=== PATIENT | female | born 1960 | race Caucasian/White ===

== ENCOUNTER 2020-05-25 14:00 | Emergency (ER) | payer MEDICARE, OTHER ==
[~2020-05-25 14:00] MED LIST: ADVAIR 100-501 EACH INH; ALDACTONE100 MG PO; ALPRAZOLAM0.5 MG PO; BACTROBAN OINT22 GM EXT; CELEXA20 MG PO; DECADRON4 MG PO; EFUDEX 5% CREAM40 GM EXT; K-TAB ER20 MEQ PO; LASIX40 MG PO; LOPERAMIDE2 MG PO; MAALOX MAXIMUM355 ML PO; NADOLOL20 MG PO; NEURONTIN 300300 MG PO; NORVASC2.5 MG PO; PROTONIX40 MG PO; TAMIFLU 75 MG C75 MG PO; XIFAXAN550 MG PO; ZITHROMAX250 MG PO; ZOCOR10 MG PO; ZOFRAN4 MG PO
[2020-05-25 15:04] LABS: HEMOGLOBIN 12.3 gm/dl (12.3-15.3); RED BLOOD COUNT 3.94 M/UL (4.00-5.10); WHITE BLOOD COUNT 6.2 K/UL (4.5-11.0)
[2020-05-25 15:31] LABS: BUN/CREATININE RATIO 8 (0-10)
[2020-05-25] MEDS ORDERED: CEFDINIR300 MG PO (19:52)
[2020-05-25] MEDS ORDERED: DOXYCYCLINE HY100 MG PO (19:52)
== END 2020-05-25 20:02 | disposition home or self-care (01) ==
LOC: ER1 14:00
PROVIDERS: Physician Assistant
DX: J18.9 Pneumonia, unspecified organism (principal); R07.89 Other chest pain; K76.9 Liver disease, unspecified; N39.0 Urinary tract infection, site not specified; R79.1 Abnormal coagulation profile; K74.60 Unspecified cirrhosis of liver; R16.1 Splenomegaly, not elsewhere classified; I10 Essential (primary) hypertension; I25.10 Atherosclerotic heart disease of native coronary artery without angina pectoris; Z98.890 Other specified postprocedural states; Z85.05 Personal history of malignant neoplasm of liver; Z87.19 Personal history of other diseases of the digestive system; Z86.16 Personal history of COVID-19
CPT/HCPCS: 80053; 81001; 82550; 82553; 83874; 84484; 85025; 93005; 99285; Q9967

== ENCOUNTER 2021-06-14 12:16 | Inpatient (IN) | payer MEDICARE, OTHER ==
[~2021-06-14] VITALS: Ht 162.6 cm; Wt 78.9 kg
[~2021-06-14 12:16] MED LIST changes: -ALDACTONE100 MG PO; -ALPRAZOLAM0.5 MG PO; +CEFDINIR300 MG PO; -CELEXA20 MG PO; +DOXYCYCLINE HY100 MG PO; -K-TAB ER20 MEQ PO; -LASIX40 MG PO; -NADOLOL20 MG PO; -NEURONTIN 300300 MG PO; -XIFAXAN550 MG PO
[2021-06-14 13:03] LABS: HEMOGLOBIN 12.2 gm/dl (12.3-15.3); RED BLOOD COUNT 3.89 M/UL (4.00-5.10); WHITE BLOOD COUNT 5.1 K/UL (4.5-11.0)
[2021-06-14 13:37] LABS: BUN/CREATININE RATIO 11 (0-10)
[2021-06-14] MEDS ORDERED: HYDROCODON-ACE1 EAC4 PO (14:14)
[2021-06-14] MEDS ORDERED: LASIX40 MG PO (14:39)
[2021-06-14] MEDS ORDERED: NEURONTIN300 MG PO (14:40)
[2021-06-14] MEDS ORDERED: CELEXA40 MG PO (14:41)
[2021-06-14] MEDS ORDERED: NADOLOL20 MG PO (14:46)
[2021-06-14] MEDS ORDERED: ALDACTONE100 MG PO (14:47)
[2021-06-14] MEDS ORDERED: PROPRANOLOL HCL10 MG PO (18:37)
[2021-06-14] MEDS ORDERED: ELIQUIS5 MG PO (18:37)
[2021-06-14] MEDS ORDERED: DILTIAZEM 24HR120 M1 PO (18:37)
[2021-06-14] MEDS ORDERED: FLECAINIDE ACET50 MG PO (18:38)
[2021-06-14] MEDS ORDERED: FLUTICASONE PRO15 G1 TOP (18:40)
[2021-06-14] MEDS ORDERED: ZOFRAN 4 MG TAB4 MG PO (19:04)
[2021-06-14] MEDS ORDERED: IPRAT-ALBUT 0.5-3 ML INH (19:06)
[2021-06-14] MEDS ORDERED: XIFAXAN550 MG PO (19:06)
[2021-06-14] MEDS ORDERED: PROAIR HFA8.5 GM INH (19:07)
[2021-06-14] MEDS ORDERED: ALPRAZOLAM0.5 MG PO (21:34)
[2021-06-14] MEDS ORDERED: POTASSIUM CHLO10 MEQ PO (21:38)
[2021-06-15 01:43] LABS: HEMOGLOBIN 12.1 gm/dl (12.3-15.3); RED BLOOD COUNT 3.8 M/UL (4.00-5.10); WHITE BLOOD COUNT 2.7 K/UL (4.5-11.0)
[2021-06-15 02:05] LABS: BUN/CREATININE RATIO 16 (0-10)
[2021-06-16 03:00] LABS: HEMOGLOBIN 11.4 gm/dl (12.3-15.3); RED BLOOD COUNT 3.6 M/UL (4.00-5.10); WHITE BLOOD COUNT 2.2 K/UL (4.5-11.0)
[2021-06-16 03:11] LABS: BUN/CREATININE RATIO 20 (0-10)
[2021-06-16] MEDS ORDERED: ISOSORBIDE MONO30 MG PO (09:58)
== END 2021-06-16 12:00 | disposition home or self-care (01) | DRG 309 ==
LOC: ER1 12:16 → CDU 14:21 → PROG CARE 15:31 → CCU 21:44 → PROG CARE 06-15 02:50
PROVIDERS: Physician Assistant; ADMIT Internal Medicine
DX: R00.1 Bradycardia, unspecified (principal); J96.11 Chronic respiratory failure with hypoxia; K76.6 Portal hypertension; I85.10 Secondary esophageal varices without bleeding; I25.119 Atherosclerotic heart disease of native coronary artery with unspecified angina pectoris; D69.6 Thrombocytopenia, unspecified; F41.9 Anxiety disorder, unspecified; T46.2X5A Adverse effect of other antidysrhythmic drugs, initial encounter; I48.0 Paroxysmal atrial fibrillation; Z20.822 Contact with and (suspected) exposure to COVID-19; H91.90 Unspecified hearing loss, unspecified ear; R16.1 Splenomegaly, not elsewhere classified; K70.30 Alcoholic cirrhosis of liver without ascites; G25.2 Other specified forms of tremor; F10.10 Alcohol abuse, uncomplicated; Z90.49 Acquired absence of other specified parts of digestive tract; Z98.51 Tubal ligation status; Z98.890 Other specified postprocedural states; Z82.3 Family history of stroke; Z82.49 Family history of ischemic heart disease and other diseases of the circulatory system; Z87.891 Personal history of nicotine dependence; Z86.16 Personal history of COVID-19; Z83.6 Family history of other diseases of the respiratory system
CPT/HCPCS: 36415; 36600; 71045; 78452; 80048; 80053; 82550; 82553; 82803; 83874; 83880; 84439; 84443; 84484; 85025; 85027; 85049; 85610; 85730; 93005; 93017; 94640; 94664; 94760; 99285; A9502; J0461; J2785; U0002

== ENCOUNTER 2021-06-23 19:12 | Emergency (ER) | payer MEDICARE, OTHER ==
[~2021-06-23 19:12] MED LIST changes: +ALDACTONE100 MG PO; +ALPRAZOLAM0.5 MG PO; +CELEXA40 MG PO; +DILTIAZEM 24HR120 M1 PO; +ELIQUIS5 MG PO; +FLECAINIDE ACET50 MG PO; +FLUTICASONE PRO15 G1 TOP; +HYDROCODON-ACE1 EAC4 PO; +IPRAT-ALBUT 0.5-3 ML INH; +ISOSORBIDE MONO30 MG PO; +LASIX40 MG PO; +NADOLOL20 MG PO; +NEURONTIN300 MG PO; +POTASSIUM CHLO10 MEQ PO; +PROAIR HFA8.5 GM INH; +PROPRANOLOL HCL10 MG PO; +XIFAXAN550 MG PO; +ZOFRAN 4 MG TAB4 MG PO
[2021-06-23 19:43] LABS: HEMOGLOBIN 12.2 gm/dl (12.3-15.3); RED BLOOD COUNT 3.78 M/UL (4.00-5.10); WHITE BLOOD COUNT 2.9 K/UL (4.5-11.0)
[2021-06-23 20:17] LABS: BUN/CREATININE RATIO 8 (0-10)
== END 2021-06-23 21:00 | disposition left against medical advice (07) ==
LOC: ER1 19:12
PROVIDERS: Physician Assistant
DX: R53.1 Weakness (principal); I48.91 Unspecified atrial fibrillation; Z79.01 Long term (current) use of anticoagulants
CPT/HCPCS: 71045; 80053; 82550; 82553; 83874; 84484; 85025; 93005; 99283